=== PATIENT | male | born 1995 | race Two or more races ===

== ENCOUNTER 2019-10-27 08:54 | Day surgery (SDC) | payer OTHER ==
[2019-10-27] MEDS ORDERED: ONDANSETRON 4 MG/2 ML VIAL IVP ONE (08:55)
[2019-10-27] MEDS ORDERED: KETOROLAC 30 MG/ML VIAL IVP ONE (08:55)
[2019-10-27] MEDS ORDERED: PROPOFOL 200 MG/20 ML VIAL IVP ONE (08:55)
[2019-10-27] MEDS ORDERED: fentaNYL 250 MCG/5 ML VIAL IVP ONE (08:55)
[2019-10-27] MEDS ORDERED: LIDOCAINE-MPF 2% 5 ML VIAL IM ONE (08:55)
[2019-10-27] MEDS ORDERED: DEXAMETHASONE 4 MG/ML VIAL IVP ONE (08:55)
[2019-10-27] MEDS ORDERED: LACTATED RINGERS 1,000 ML IV ONE ×2 (09:00→14:33)
[2019-10-27] MEDS ORDERED: CEFAZOLIN SODIUM IN 0.9 % NACL 2 GM/100 ML BAG IV ONE (09:16)
--- NOTE | 2019-10-27 09:41 | ANESTHESIA ---
Pre-Anesthesia VS, & Labs - Diagnosis right tibial stress fracture - Procedure right tibial IM nail Vital Signs: Temp Pulse Resp BP Pulse Ox 36.7 C 67 12 126/67 99 10/27/19 09:00 10/27/19 09:00 10/27/19 09:00 10/27/19 09:00 10/27/19 09:00 Height 5 ft 11 in Weight (kg) 98.88 kg - NPO >8 hours - Lab Results Lab results reviewed: Yes Home Medications and Allergies Home Medications: Ambulatory Orders No Known Home Medications 10/22/19 No Known Home Medications 10/22/19 Allergies/Adverse Reactions: Allergies Allergy/AdvReac Type Severity Reaction Status Date / Time No Known Drug Allergies Allergy Verified 10/22/19 10:35 Anes History & Medical History - Anesthetic History Anesthesia Complications: reports: No previous complications Family history of Anesthesia Complications: Denies Family history of Malignant Hyperthermia: Denies - Medical History Cardiovascular: reports: None Pulmonary: reports: None Gastrointestinal: reports: None Urinary: reports: None Musculoskeletal: reports: Other Endocrine/Autoimmune: reports: None Skin: reports: Other - Surgical History General: Other Exam General: Alert, Oriented x3, Cooperative Dental: WNL Mouth Opening: Greater than 4 Fingerbreadths Mallampati classification: IV Thyromental Distance: 4-6 cm Respiratory: Lungs clear Cardiovascular: Regular rate Plan Anesthesia Type: General Consent for Procedure(s) Verified and Reviewed: Yes Code Status: Attempt Resuscitation ASA classification: 1-Healthy patient Is this case an emergency?: No
[2019-10-27] MEDS ORDERED: BUPIVACAINE 0.25% PF 30 ML VIAL ONE (11:41)
[2019-10-27] MEDS ORDERED: PROCHLORPERAZINE 10 MG/2 ML VIAL IVP PRN (14:15)
[2019-10-27] MEDS ORDERED: SODIUM CHLORIDE FLUSH 0.9% 10 ML SYRINGE IVP PRN (14:15)
[2019-10-27] MEDS ORDERED: ONDANSETRON 4 MG/2 ML VIAL IVP PRN (14:15)
[2019-10-27] MEDS ORDERED: MORPHINE 2 MG/ML CARPUJECT IVP PRN (14:15)
[2019-10-27] MEDS ORDERED: ACETAMINOPHEN 1,000 MG/100 ML 100 ML IV PRN (14:15)
[2019-10-27] MEDS ORDERED: ACETAMINOPHEN 325 MG TABLET PO PRN (14:15)
[2019-10-27] MEDS ORDERED: ACETAMINOPHEN 1,000 MG/100 ML 100 ML IV ONE (14:28)
[2019-10-27] MEDS ORDERED: HYDROmorphone 0.5 MG/0.5 ML SYRINGE ONE ×2 (14:29→14:44)
--- NOTE | 2019-10-27 14:34 | OPERATIVE REPORT ---
Operative Report - Other Other Information/Narrative: Date of Surgery: 27 October 2019 Pre-Op Diagnosis: Right tibial shaft stress fracture, chronic Procedure: Intramedullary fixation of right tibia stress fracture Postop Diagnosis: Same Primary Surgeon: Rian Sam Secondary Surgeon: None Complications: None Tourniquet Time: None EBL: 100 cc Implants: Synthes 10 mm x 375 mm expert tibial nail. Two 5.0 mm interlock screws Postoperative Protocol: Same day surgery overnight stay for pain control. Weightbearing as tolerated. Knee range of motion and ankle range of motion as tolerated. Will advance activity over the course of a few months. Indication For Surgery: 24-year-old male has had a right tibia stress fracture with anterior fracture line for the last 3 years. It is been refractory to bone stimulation activity modifications physical therapy, dietary supplements, and other measures. Every time he is attempted to return to dynamic activities he has a significant return of symptoms. I discussed the goals of surgery would be to incite healing and provide additional support. I explained to him that his fracture may not heal and he could continue to have pain despite surgery. I specifically stated that the nail opening site in the anterior knee may be painful for an extended period. Despite these risks and concerns he wanted to move forward with surgery. Additional risks, benefits, and alternatives were discussed. Risks include pain, bleeding, infection, damage to nearby struct ures, numbness, lack of symptom relief, implant complications, nonunion, need for further surgery, DVT, PE, stroke, and . Written consent was obtained. Procedure in Detail: The patient was met in the pre-operative hold area on the day of the procedure. The operative extremity was signed and questions were answered. The patient was brought to the operating room and a general anesthetic was administered. Supine position was used and all bony prominences were padded. Standard prepping and draping was performed. A time out confirmed patient identification, laterality, procedure, allergies, antibiotics, and images. Fluoroscopy was used with a guide aster to determine the incision location. The infrapatellar approach was selected. Incision was placed just medial to the patellar tendon at the inferior pole of the patella. Sharp dissection was brought down adjacent to the tendon and a window was created behind the tendon taking care to not enter the tendon. The retinaculum was split longitudinally just adjacent to the tendon and the tendon was retracted. Under orthogonal fluoroscopic guidance, the starting point was identified in the flat spot on the anterior, proximal tibia, in line with the tibial canal. The opening reamer was used. The guidewire was brought down to the ankle and measured to be 395. The available nails were 390 and then 375, so 375 was selected. I then sequentially reamed from 8.5 until 11.5 mm and chatter was obtained on 10.5,11, and 11.5. The nail was malleted into place under fluoroscopic guidance. A proximal interlock was placed through the guide. Perfect king island technique was used to place a distal interlock. Final images were taken. The wounds were irrigated copiously to remove all debris and closed in a layered fashion with 0 Vicryl in the retinaculum, 2-0 Vicryl in the dermis, and nylon in the skin. A sterile dressing was placed. He will be admitted monitored in the hospital overnight to ensure there is adequate pain control.
[2019-10-27] MEDS: SODIUM CHLORIDE FLUSH 0.9% 10 ML SYRINGE IVP SCH ×2 (16:19→23:53)
[2019-10-27] MEDS: oxyCODONE 5 MG TABLET PO PRN ×2 (16:20→23:52)
--- NOTE | 2019-10-27 16:53 | XRAY Report ---
Reason: IMPLANT PLACEMENT - RIGHT TIBIA Procedure Date: 10/27/2019 Accession Number: [id number] / [id number] Procedure: FL - OR C-Arm Procedure CPT Code: Final Report FULL RESULT: PROCEDURE: OR C-Arm Procedure INDICATIONS: IMPLANT PLACEMENT - RIGHT TIBIA TECHNIQUE: 7 intraoperative images were obtained. COMPARISON: None. FINDINGS: Intraoperative images demonstrate aster and fixation within the tibia. There is good anatomic alignment. Hardware is intact. IMPRESSION: Intraoperative tibial fusion as above. Reviewed by: Negin Zuñiga MD on 10/27/2019 4:51 PM PDT Approved by: Negin Zuñiga MD on 10/27/2019 4:51 PM PDT Station ID: [id number]
[2019-10-27] MEDS: ceFAZolin 2 GM in SODIUM CHLORIDE 0.9% 100ML 100 ML IV SCH (20:29)
[2019-10-28] MEDS: ceFAZolin 2 GM in SODIUM CHLORIDE 0.9% 100ML 100 ML IV SCH (04:24)
[2019-10-28] MEDS: SODIUM CHLORIDE FLUSH 0.9% 10 ML SYRINGE IVP SCH (04:25)
[2019-10-28] MEDS: oxyCODONE 5 MG TABLET PO PRN (04:47)
--- NOTE | 2019-10-28 07:00 | PROVIDER PROGRESS NOTE ---
Subjective - Prog Note Date Prog Note Date: 10/28/19 Prog Note Time: 06:55 - Subjective Pt reports feeling: Improved (pain tolerable overnight on oral medications. Denies f/c/s. No nausea. Has been able to use the bathroom and eat without issue.) Objective - Vital Signs/Intake & Output Vital Signs: Vital Signs x48h Temp Pulse Resp BP Pulse Ox 10/27/19 23:49 37.0 C 64 16 126/64 97 Intake & Output: Intake & Output 10/25/19 10/26/19 10/27/19 10/28/19 23:59 23:59 23:59 23:59 Intake Total 1500 100 Output Total 100 Balance 1400 100 - Objective General Appearance: positive: No acute distress Eyes Bilateral: positive: Normal inspection ENT: positive: ENT inspection nml Peripheral Pulses: 2+ Dorsalis pedis (R) Extremities: positive: Calf tenderness (no calf tenderness. Dressing intact. No pain on ankle or knee ROM) Assessment/Plan - Problem List (1) Stress fracture, right tibia, subsequent encounter for fracture with delayed healing Impression: Doing well POD #1 s/p IM nailing of right tibia fracture. Discharge to home this morning with continued outpatient treatment. Follow up in 2 weeks is already established.
[2019-10-28 08:16] VITALS: BP 125/70
== END 2019-10-28 08:30 | disposition home or self-care (01) ==
LOC: SDS 08:54 → MS2 14:13 → SDS 10-28 08:30
PROVIDERS: ATTEND Orthopaedic Surgery
DX: M84.361A Stress fracture, right tibia, initial encounter for fracture (principal)
CPT/HCPCS: C1713

== ENCOUNTER 2019-12-01 18:37 | Emergency (ER) | payer OTHER ==
[2019-12-01 18:50] VITALS: BP 136/79
--- NOTE | 2019-12-01 19:13 | ED Physician Documentation ---
PD HPI LOWER EXT INJURY - Stated complaint Stated Complaint: PAIN L LEG - Chief complaint Chief Complaint: Ext Problem - History obtained from History obtained from: Patient - History of Present Illness PD HPI LOW EXT INJURY LOCATION: Left, Lower leg Where injury occurred: Home Timing - onset: Today (this evening) Timing - details: Abrupt onset Pain level now: 6 Improved by: Rest Worsened by: Moving, Palpating Associated symptoms: No: Weakness, Numbness, Tingling, Swelling, Discolored Similar symptoms before: No diagnosis Recently seen: Surgery - Additional information Additional information: c/o sudden onset left posterior lower leg pain when walking up stairs this evening. He has been recovering from right knee surgery (performed end on September), and he thinks tonights incident is related to favoring the left leg. pain is worse with weight-bearing Review of Systems Musculoskeletal: reports: Extremity pain, Pain with weight bearing. denies: Extremity swelling Neurologic: denies: Focal weakness, Numbness PD PAST MEDICAL HISTORY - Past Medical History Past Medical History: No Cardiovascular: None Respiratory: None Endocrine/Autoimmune: None GI: None : None HEENT: None Psych: Anxiety Musculoskeletal: Other Derm: Other - Past Surgical History General: Other - Present Medications Home Medications: Ambulatory Orders Medication Instructions Recorded Confirmed No Known Home Medications 10/22/19 10/22/19 - Allergies Allergies/Adverse Reactions: Allergies Allergy/AdvReac Type Severity Reaction Status Date / Time No Known Drug Allergies Allergy Verified 12/01/19 18:47 - Social History Does the pt smoke?: No Smoking Status: Never smoker Does the pt drink ETOH?: No Does the pt have substance abuse?: No - Immunizations Immunizations are current?: Yes PD ED PE NORMAL - Vitals Vital signs reviewed: Yes - General General: Alert and oriented X 3, No acute distress, Well developed/nourished - Derm Derm: Normal color, Warm and dry, No rash - Extremities Extremities: No deformity, No edema, Other (TTP posterior left calf, 3-5 cm proximal to ankle. Pain with squeeze of left calf although negative Posadas test (squeezing results in plantarflexion)) - Neuro Neuro: No motor deficit, No sensory deficit Results - Vitals Vitals: Oxygen O2 Source Room air PD MEDICAL DECISION MAKING - ED course Complexity details: considered differential, d/w patient ED course: Imaging not performed at this time, not emergently indicated. Based on HPI and location of pain/tenderness, suspect muscular sprain, although partial tendon rupture possible; patient instructed to follow up for further assessment, might benefit from outpatient study such as US or MRI Departure - Departure Disposition: 01 Home, Self Care Clinical Impression: Sprain of left lower leg Qualifiers: Encounter type: initial encounter Qualified Code(s): S83.92XA - Sprain of unspecified site of left knee, initial encounter Condition: Good Instructions: ED Tendon Rupture Achilles, ED Strain Muscle Ext Comments: As we discussed, your exam does not suggest a complete rupture of the tendon, but I still suspect a partial tear based on the description of the event and the location of your tenderness. Follow up with your orthopedic surgeon tomorrow as scheduled and they can advise you as to whether further testing or treatment is indicated. Discharge Date/Time: 12/01/19 19:51
[2019-12-01] MEDS ORDERED: IBUPROFEN 600 MG TABLET PO STA (19:36)
== END 2019-12-01 19:51 | disposition home or self-care (01) ==
LOC: ED 18:37
DX: S86.912A Strain of unspecified muscle(s) and tendon(s) at lower leg level, left leg, initial encounter (principal); X58.XXXA Exposure to other specified factors, initial encounter; Y93.01 Activity, walking, marching and hiking; Y92.009 Unspecified place in unspecified non-institutional (private) residence as the place of occurrence of the external cause
CPT/HCPCS: 99282; 99283; A9270